=== PATIENT | female | born 1995 | race African-American/Black ===

== ENCOUNTER 2017-02-20 10:23 | Emergency (ER) | payer OTHER ==
[~2017-02-20] VITALS: Ht 170.2 cm; Wt 64.1 kg
[~2017-02-20 10:23] MED LIST: FLONASE16 G1 BOTH NARES; MUCUS RELIEF600 MG PO; NAPROSYN500 MG PO; NAPROXEN500 MG PO; PEN-VEE K,VEET500 MG PO; TESSALON PERLE100 MG PO
[2017-02-20 11:51] LABS: INTERNAL CONTROL VALID? YES; MONOSPOT (MONONUCLEOSIS SEROL) NEGATIVE
[2017-02-20 13:20] VITALS: BP 109/82
== END 2017-02-20 13:20 | disposition home or self-care (01) ==
LOC: EME 10:23
PROVIDERS: Physician Assistant
DX: J02.8 Acute pharyngitis due to other specified organisms (principal); B97.89 Other viral agents as the cause of diseases classified elsewhere; Z87.891 Personal history of nicotine dependence
CPT/HCPCS: 86308; 87651 90; 99281; 99283

== ENCOUNTER 2017-02-22 15:29 | Emergency (ER) | payer OTHER ==
[~2017-02-22] VITALS: Ht 170.2 cm; Wt 63.1 kg
[2017-02-22 16:52] LABS: HEMATOCRIT 30.5 % (36.0-46.0); MCH 20.3 PG (29.0-34.0); MCHC 30.2 G/DL (30.0-36.0); MCV 67.3 FL (83-99); MEAN PLAT.VOLUME 9.5 uM^3 (9.5-12.4); PLATELET COUNT 354 K/uL (156-360); RBC DIS.WIDTH-CV 18.7 % (11.8-14.6); RED BLOOD COUNT 4.53 M/uL (3.80-5.20); WHITE BLOOD COUNT 10.5 K/uL (4.1-10.2)
[2017-02-22 16:57] LABS: CHLORIDE 106 mEq/L (99-109); SODIUM 138 mEq/L (136-147)
[2017-02-22 16:59] LABS: GLUCOSE 86 mg/dL (70-99)
[2017-02-22 17:00] LABS: ANION GAP 12 MEQ/L (2-14)
[2017-02-22 17:01] LABS: TOTAL BILIRUBIN 0.3 mg/dL (0.0-1.0)
[2017-02-22 17:02] LABS: ALKALINE PHOSPHATASE 54 IU/L (3-129)
[2017-02-22 17:03] LABS: GFR ESTIMATE (CALCULATED) > 59 mL/min/
[2017-02-22 17:04] LABS: UREA NITROGEN (BUN) 11 mg/dL (9-23)
[2017-02-22] MEDS ORDERED: CLINDAMYCIN HC300 MG PO (20:03)
[2017-02-22] MEDS ORDERED: TRAMADOL HCL50 MG PO (20:03)
[2017-02-22] MEDS ORDERED: NAPROSYN500 MG PO (20:03)
[2017-02-22 20:29] VITALS: BP 108/60
== END 2017-02-22 20:30 | disposition home or self-care (01) ==
LOC: EME 15:29
PROVIDERS: Nurse Practitioner Family
DX: J36 Peritonsillar abscess (principal); R59.0 Localized enlarged lymph nodes; J30.2 Other seasonal allergic rhinitis
CPT/HCPCS: 70491; 80053; 85027; 87081; 99281; 99285; J1100; J3010; J7030

== ENCOUNTER 2017-02-23 23:40 | Emergency (ER) | payer OTHER ==
[~2017-02-23] VITALS: Ht 170.2 cm; Wt 63.7 kg
[~2017-02-23 23:40] MED LIST changes: +CLINDAMYCIN HC300 MG PO; +TRAMADOL HCL50 MG PO
[2017-02-24 02:16] VITALS: BP 107/61
[2017-02-24] MEDS ORDERED: MOUTH SORE15 ML MM (02:23)
== END 2017-02-24 02:45 | disposition home or self-care (01) ==
LOC: EME 23:40
DX: J36 Peritonsillar abscess (principal); F17.200 Nicotine dependence, unspecified, uncomplicated
CPT/HCPCS: 99281; 99285; J1100; J2270

== ENCOUNTER 2017-03-30 10:28 | Emergency (ER) | payer OTHER ==
[~2017-03-30] VITALS: Ht 160 cm; Wt 62.1 kg
[~2017-03-30 10:28] MED LIST changes: +MOUTH SORE15 ML MM
[2017-03-30] MEDS ORDERED: NORCO 5/3251 TABLET PO (13:56)
[2017-03-30 14:12] VITALS: BP 121/74
== END 2017-03-30 14:13 | disposition home or self-care (01) ==
LOC: EME 10:28
PROC: 0PSPXZZ Reposition Right Metacarpal, External Approach (ICD-10-PCS; principal; 2017-03-30)
DX: S62.396A Other fracture of fifth metacarpal bone, right hand, initial encounter for closed fracture (principal); W22.09XA Striking against other stationary object, initial encounter
CPT/HCPCS: 73130; 99281; 99283

== ENCOUNTER 2017-04-07 14:38 | Emergency (ER) | payer OTHER ==
[~2017-04-07] VITALS: Ht 170.2 cm; Wt 62.3 kg
[~2017-04-07 14:38] MED LIST changes: +NORCO 5/3251 TABLET PO
[2017-04-07 14:45] VITALS: BP 117/70
== END 2017-04-07 17:43 | disposition left against medical advice (07) ==
LOC: EME 14:38
DX: S62.306A Unspecified fracture of fifth metacarpal bone, right hand, initial encounter for closed fracture (principal); X58.XXXA Exposure to other specified factors, initial encounter
CPT/HCPCS: 73130; 87070; 87205; 99281; 99283